=== PATIENT | female | born 1930 | race African-American/Black ===

== ENCOUNTER 2017-08-08 15:55 | Inpatient (IN) ==
[2017-08-08] MEDS ORDERED: PROMETHAZINE 25 MG/1 ML VIAL IM PRN (17:42)
[2017-08-08] MEDS ORDERED: ONDANSETRON 4 MG/2 ML VIAL IV PRN (17:42)
[2017-08-08] MEDS ORDERED: ACETAMINOPHEN 325 MG TABLET PO PRN (17:42)
[2017-08-08] MEDS ORDERED: HYDROmorphone 2 MG/1 ML VIAL IV PRN (17:42)
[2017-08-08] MEDS: PIPERACILLIN/TAZOBACTAM 3,375 MG in SODIUM CHLORIDE 0.9% 100 ML IV SCH (21:26)
[2017-08-09] MEDS: PIPERACILLIN/TAZOBACTAM 3,375 MG in SODIUM CHLORIDE 0.9% 100 ML IV SCH ×3 (04:39→21:53)
[2017-08-09 04:40] LABS: Basophils # 0.1 10*3/uL (0.0-0.2); Basophils % 0.9 % (0.0-0.8); Eosinophils # 0.4 10*3/uL (0.0-0.87); Hematocrit 33.1 VOL% (35.7-47.0); Hemoglobin 11.1 GM/DL (12.0-16.0); Immature Granulocytes % 0.9 %; Immature Granulocytes Absolute 0.06 #; Lymphocytes # 1.3 10*3/uL (1.4-4.0); Lymphocytes % 18.2 % (21.3-54.2); Mean Corpuscular HGB Conc 33.5 GM/DL (32-36); Mean Corpuscular Hemoglobin 30 PG (27-34); Mean Corpuscular Volume 88.3 FL (87-102); Mean Platelet Volume 9.6 FL (9.6-12.0); Monocytes # 0.7 10*3/uL (0.11-0.8); Monocytes % 9.3 % (1.7-12.7); Neutrophils # 4.5 10*3/uL (1.4-7.4); Neutrophils % 64.7 % (38.7-73.9); Platelet Count 319 T/CUMM (130-400); Red Blood Count 3.75 MC/CUMM (3.8-5.5); Red Cell Distribution Width 13.9 % (9.3-17.3)
[2017-08-09 05:18] LABS: Albumin 2.6 G/DL (3.4-5.0); Calcium 8.6 MG/DL (8.5-10.1); Osmolality,Calculated 281.4 MOS/KG (273-304); Potassium 4.9 MMOL/L (3.5-5.1); Total Protein 6.3 G/DL (6.4-8.3)
[2017-08-09] MEDS: MELOXICAM 7.5 MG TABLET PO SCH (08:36)
[2017-08-09] MEDS: PANTOPRAZOLE 40 MG TABLET PO SCH (08:36)
[2017-08-09] MEDS: ATORVASTATIN 40 MG TABLET PO SCH (08:36)
[2017-08-09] MEDS: ASPIRIN EC 325 MG TABLET PO SCH (08:36)
[2017-08-09] MEDS: amLODIPine 5 MG TABLET PO SCH (08:36)
[2017-08-09] MEDS: METOPROLOL SUCCINATE XL 25 MG TABLET PO SCH (08:36)
[2017-08-09] MEDS ORDERED: ONDANSETRON 4 MG/2 ML VIAL ONE (09:00)
[2017-08-09] MEDS ORDERED: GLYCOPYRROLATE 0.4 MG/2 ML VIAL ONE (09:00)
[2017-08-09] MEDS ORDERED: PROPOFOL 200 MG/20 ML VIAL IV ONE (09:00)
[2017-08-09] MEDS ORDERED: NEOSTIGMINE 10 MG/10 ML VIAL ONE (09:00)
[2017-08-09] MEDS ORDERED: DEXAMETHASONE 10 MG/1 ML VIAL ONE (09:00)
[2017-08-09] MEDS ORDERED: KETOROLAC 30 MG/1 ML VIAL ONE (09:00)
[2017-08-09] MEDS ORDERED: ROCURONIUM 100 MG/10 ML VIAL IV ONE (09:00)
[2017-08-09] MEDS ORDERED: LIDOCAINE 2% 5 ML VIAL ONE (09:00)
[2017-08-09] MEDS ORDERED: PHENYLEPHRINE 1 MG/10 ML SYRINGE IV ONE (09:00)
[2017-08-09] MEDS ORDERED: LIDOCAINE 2%/EPI 20 ML VIAL ONE (12:25)
[2017-08-09] MEDS ORDERED: TISSUE ADHESIVE 1 EACH APPLICATOR TOP ONE (12:26)
[2017-08-09] MEDS ORDERED: fentaNYL 100 MCG/2 ML VIAL ONE (15:00)
[2017-08-09] MEDS ORDERED: LACTATED RINGERS 1,000 ML IV SCH (15:30)
[2017-08-09] MEDS: LACTATED RINGERS 1,000 ML IV SCH ×3 (21:30→23:54)
[2017-08-10 03:39] LABS: Basophils % 0.4 % (0.0-0.8); Eosinophils # 0.3 10*3/uL (0.0-0.87); Eosinophils % 3.7 % (0.00-10.9); Hematocrit 32.9 VOL% (35.7-47.0); Hemoglobin 10.9 GM/DL (12.0-16.0); Immature Granulocytes % 0.4 %; Immature Granulocytes Absolute 0.04 #; Lymphocytes # 1.1 10*3/uL (1.4-4.0); Lymphocytes % 12.6 % (21.3-54.2); Mean Corpuscular HGB Conc 33.1 GM/DL (32-36); Mean Corpuscular Hemoglobin 29 PG (27-34); Mean Platelet Volume 9.4 FL (9.6-12.0); Monocytes # 0.6 10*3/uL (0.11-0.8); Monocytes % 6.9 % (1.7-12.7); Neutrophils # 6.8 10*3/uL (1.4-7.4); Platelet Count 318 T/CUMM (130-400); Red Blood Count 3.78 MC/CUMM (3.8-5.5); Red Cell Distribution Width 13.9 % (9.3-17.3); White Blood Count 8.9 T/CUMM (4-12)
[2017-08-10 04:02] LABS: Albumin 2.5 G/DL (3.4-5.0); Calcium 8.3 MG/DL (8.5-10.1); Osmolality,Calculated 279.4 MOS/KG (273-304); Potassium 4.4 MMOL/L (3.5-5.1); Total Protein 5.8 G/DL (6.4-8.3)
[2017-08-10] MEDS: PIPERACILLIN/TAZOBACTAM 3,375 MG in SODIUM CHLORIDE 0.9% 100 ML IV SCH ×2 (05:00→14:16)
[2017-08-10] MEDS: LACTATED RINGERS 1,000 ML IV SCH (07:29)
[2017-08-10] MEDS: ATORVASTATIN 40 MG TABLET PO SCH (10:18)
[2017-08-10] MEDS: PANTOPRAZOLE 40 MG TABLET PO SCH (10:18)
[2017-08-10] MEDS: METOPROLOL SUCCINATE XL 25 MG TABLET PO SCH (10:19)
[2017-08-10] MEDS: amLODIPine 5 MG TABLET PO SCH (10:20)
[2017-08-10] MEDS: MELOXICAM 7.5 MG TABLET PO SCH (10:20)
[2017-08-10] MEDS ORDERED: ASPIRIN EC 81 MG TABLET PO SCH (10:38)
[2017-08-10] MEDS: ASPIRIN EC 325 MG TABLET PO SCH (11:20)
[2017-08-10 11:49] VITALS: BP 104/60
== END 2017-08-10 15:10 | disposition home or self-care (01) | DRG 419 ==
LOC: N.3E → EDSTATUS 15:59 → OBSVTOIN 16:32
PROVIDERS: ADMIT Surgery; ATTEND Surgery
PROC: LAPCHOL (2017-08-09 13:10)